=== PATIENT | male | born 1940 | race Caucasian/White ===

== ENCOUNTER 2020-04-27 13:45 | Outpatient (RCR) | payer MEDICARE, SELFPAY ==
--- NOTE | 2020-04-27 15:16 | PTOPEVAL ---
Thank you for referring Chris Phillips to [facility]. Please review, sign, date and return this plan of care GERHARD. I agree with and certify that the following plan of care is medically necessary. Referring Physician Date Admitting Provider: Attending Provider: Warren Talavera M.D. Referring Provider: *PT Outpatient Evaluation Start: 04/27/20 14:04 Freq: Status: Active Protocol: Document 04/27/20 14:00 CANDY (Rec: 04/27/20 14:45 CANDY [id number]) Therapy Assessment Status Assessment Status Assessment Status Evaluation Evaluation Information Problem Diagnosis gait imbalance, weakness Onset 04/01/20 Subjective Information Pt. reports that he undrewent Query Text:As Reported By Patient/ neck surgery in 2014. He Family reports he initially noted balance problems around that time. He states that he has not fallen but loses balance often. He notes some numbness in the right arm and notes a clunk in the neck. He reports that he is getting a follow up with a surgeon regarding his neck. He states that he continues to perform all ADL's , just with unsteadiness. He reports that his goal is to improve his balance and decrease his fear of falling. Prior Level of Function Activity Level (Last 3 Months) Occupation retired Hand Dominance Right Activity of Daily Living Ability Independent Indoor/Home Mobility Independent Community Mobility Independent Stairs Ability Independent Functional Cognition (Planning, Shopping Independent , Taking Medications) Cooking Yes Cleaning Yes Laundry Yes Shopping Yes Driving Yes Pain Assessment Self Report Self Report Pain Level 0 Pain Score Pain Score 0: Self Report Cervical and Lumbar ROM Cervical ROM Cervical Flexion (0-60) 30 Query Text:Active in Degrees Cervical Extension (0-70) 38 Query Text:Active in Degrees Cervical Lateral Flexion Right (0-50) 20 Query Text:Active in Degrees Cervical Lateral Flexion Left (0-50) 20 Query Text:Active in Degrees Cervical Rotation Right (0-90) 50 Query Text:Active in Degrees Cervical R
== END 2020-05-20 14:19 | disposition home or self-care (01) ==
LOC: CHSPT 13:45
PROVIDERS: PCP Family Medicine; Visit Provider Family Medicine
DX: R26.89 Other abnormalities of gait and mobility (principal); R53.1 Weakness
CPT/HCPCS: 97110; 97112; 97161

== ENCOUNTER 2023-08-15 09:25 | Outpatient (CLI) | payer MEDICARE, SELFPAY | END 2023-08-15 09:26 | disposition home or self-care (01) | PROVIDERS: PCP Family Medicine; Visit Provider Specialist | DX: L81.4 Other melanin hyperpigmentation (principal) | CPT/HCPCS: 88305 ==